=== PATIENT | male | born 1970 | race African-American/Black ===

== ENCOUNTER 2021-08-15 03:22 | Emergency (ER) | payer SELFPAY ==
[2021-08-15] MEDS ORDERED: NA CHLORIDE 0.9% 1,000 ML ONE (04:25)
[2021-08-15] MEDS ORDERED: ONDANSETRON 4 MG/2 ML VIAL ONE (04:25)
[2021-08-15] MEDS ORDERED: MORPHINE 4 MG/ML SYR ONE ×2 (04:25→06:16)
[2021-08-15 04:54] LABS: Absolute Lymphocytes (CBC) 2.8 K/uL (0.7-4.9); MPV 7.6 fL (7.6-11.3); RBC Red Blood Cell Count 4.56 M/uL (4.33-5.43)
[2021-08-15 05:06] LABS: Albumin 3.6 g/dL (3.4-5.0); Bilirubin Direct 0.1 mg/dL (0-0.2); Bilirubin Total 0.5 mg/dL (0.2-1.0); Potassium 3.9 mmol/L (3.5-5.1); Protein, Total 7.8 g/dL (6.4-8.2)
[2021-08-15 05:13] LABS: Urine Blood Trace-intact (Negative); Urine Glucose Negative (Negative); Urine Protein Negative (Negative); Urine pH 6.5 (5.0-7.0)
[2021-08-15 05:31] LABS: Barbiturates NEGATIVE (NEGATIVE); Benzodiazepines NEGATIVE (NEGATIVE); Cocaine NEGATIVE (NEGATIVE); METHAMPHETAM NEGATIVE (NEGATIVE); Methadone NEGATIVE (NEGATIVE); Opiates NEGATIVE (NEGATIVE); Phencyclidine NEGATIVE (NEGATIVE); THC Cannibis POSITIVE (NEGATIVE)
[2021-08-15] MEDS ORDERED: PROMETHAZINE INJ 25 MG/ML AMP ONE (06:15)
--- NOTE | 2021-08-15 06:53 | EDPHYS ---
Physician Documentation [facility] Name: Ab Serrano Jr Age: 51 yrs Sex: Male : 1970 Arrival Date: 08/15/2021 Time: 03:25 Bed 8 Private MD: ED Physician Rajat Scott HPI: 08/15 04:59 This 51 yrs old Black Male presents to ER via Ambulatory with complaints of Possible mh7 Kidney Stone. 04:59 The patient presents with abdominal pain in the lower abdomen. Onset: The mh7 symptoms/episode began/occurred 2 day(s) ago. The symptoms do not radiate. Associated signs and symptoms: Pertinent positives: dysuria, nausea, Pertinent negatives: anorexia, blood in stools, chest pain, constipation, diarrhea, fever, headache, hematuria, palpitations, shortness of breath, testicular pain, vomiting, vomiting blood. The symptoms are described as intermittent, vague, waxing/waning. Modifying factors: The symptoms are alleviated by nothing, the symptoms are aggravated by nothing. Severity of pain: At its worst the pain was moderate 2 day(s) ago, in the emergency department the pain has improved moderately. Historical: - Allergies: 03:38 No Known Allergies; as6 - Home Meds: 03:38 None [Active]; as6 - PMHx: 03:38 None; as6 - PSHx: 03:38 arm; as6 - Immunization history:: Client reports receiving the 2nd dose of the Covid vaccine, [employer] . - Social history:: Smoking status: Patient denies any tobacco usage or history of. ROS: 04:59 Constitutional: Negative for fever, chills, and weight loss, Eyes: Negative for injury, mh7 pain, redness, and discharge, ENT: Negative for injury, pain, and discharge, Neck: Negative for injury, pain, and swelling, Cardiovascular: Negative for chest pain, palpitations, and edema, Respiratory: Negative for shortness of breath, cough, wheezing, and pleuritic chest pain, Back: Negative for injury and pain, MS/Extremity: Negative for injury and deformity, Skin: Negative for injury, rash, and discoloration, Neuro: Negative for headache, weakness, numbness, tingling, and seizure. Exam: 04:59 Constitutional: This is a well developed, well nourished patient who is awake, alert, mh7 and in no acute distress. Head/Face: Normocephalic, atraumatic. Eyes: Pupils equal round and reactive to light, extra-ocular motions intact. Lids and lashes normal. Conjunctiva and sclera are non-icteric and not injected. Cornea within normal limits. Periorbital areas with no swelling, redness, or edema. Neck: Trachea midline, no thyromegaly or masses palpated, and no cervical lymphadenopathy. Supple, full range of motion without nuchal rigidity, or vertebral point tenderness. No Meningismus. Chest/axilla: Normal chest wall appearance and motion. Nontender with no deformity. No lesions are appreciated. Cardiovascular: Regular rate and rhythm with a normal S1 and S2. No gallops, murmurs, or rubs. Normal PMI, no JVD. No pulse deficits. Respiratory: Lungs have equal breath sounds bilaterally, clear to auscultation and percussion. No rales, rhonchi or wheezes noted. No increased work of breathing, no retractions or nasal flaring. 04:59 Back: No spinal tenderness. No costovertebral tenderness. Full range of motion. Skin: Warm, dry with normal turgor. Normal color with no rashes, no lesions, and no evidence of cellulitis. MS/ Extremity: Pulses equal, no cyanosis. Neurovascular intact. Full, normal range of motion. Neuro: Awake and alert, GCS 15, oriented to person, place, time, and situation. Cranial nerves II-XII grossly intact. Motor strength 5/5 in all extremities. Sensory grossly intact. Cerebellar exam normal. Normal gait. Psych: Awake, alert, with orientation to person, place and time. Behavior, mood, and affect are within normal limits. 04:59 Abdomen/GI: Inspection: abdomen appears normal, Bowel sounds: normal, in all quadrants, Palpation: moderate abdominal tenderness, in the suprapubic area, right lower quadrant and left lower quadrant, mass, is not appreciated, rebound tenderness, is not appreciated, voluntary guarding, is not appreciated, involuntary guarding, is not appreciated, no appreciated organomegaly, Rectal exam: the exam is deferred, because of patient request, Indicators: McBurney's point is not tender, Bacon's sign is negative, Rovsing's sign is negative, Obturator sign is negative, Psoas sign is negative, Liver: no appreciated palpable abnormalities, Hernia: not appreciated. 04:59 ECG was reviewed by the Attending Physician. [facility] Vital Signs: 03:36 BP 142 / 105; Pulse 72; Resp 18 S; Temp 98.1(TE); Pulse Ox 99% on R/A; Weight 77.11 kg as6 (R); Height 5 ft. 7 in. (170.18 cm) (R); Pain 7/10; 06:51 BP 136 / 98; Pulse 65; Resp 18; Pulse Ox 100% on R/A; sm5 03:36 Body Mass Index 26.63 (77.11 kg, 170.18 cm) as6 MDM: 06:49 Differential diagnosis: bowel obstruction, diverticulitis, gastroesophageal reflux mh7 disease, non-specific abd pain, Ureterolithiasis, urinary tract infection. Data reviewed: vital signs, nurses notes, lab test result(s), CBC, electrolytes, urinalysis, EKG, radiologic studies, CT scan. Data interpreted: Pulse oximetry: on room air is 99 %. Interpretation: normal. Counseling: I had a detailed discussion with the patient and/or guardian regarding: the historical points, exam findings, and any diagnostic results supporting the discharge/admit diagnosis, the presence of at least one elevated blood pressure reading (>120/80) during this emergency department visit, lab results, radiology results, the need for outpatient follow up, a urologist, to return to the emergency department if symptoms worsen or persist or if there are any questions or concerns that arise at home. Response to treatment: the patient's symptoms have resolved after treatment, the patient's blood pressure is in an acceptable range, mental status has returned to baseline, the patient no longer shows bradycardia, the patient is not short of breath, the patient is not tachycardic, the patient's pain is gone, the patient's temperature has normalized, the patient is now symptom free, patient is well hydrated. 06:52 Patient medically screened. [facility] 08/15 04:17 Order name: Basic Metabolic Panel [facility] 08/15 04:17 Order name: CBC with Diff; Complete Time: 05:36 [facility] 08/15 04:17 Order name: Hepatic Function; Complete Time: 05:36 [facility] 08/15 04:17 Order name: Lipase; Complete Time: 05:36 [facility] 08/15 04:17 Order name: Basic Metabolic Panel; Complete Time: 05:36 [facility] 08/15 04:18 Order name: UDS; Complete Time: 05:36 [facility] 08/15 04:17 Order name: EKG; Complete Time: 04:18 [facility] 08/15 04:19 Order name: CT Abd/Pelvis - IV Contrast Only [facility] 08/15 05:12 Order name: Urine Dipstick-Ancillary; Complete Time: 05:36 [facility] 08/15 04:17 Order name: IV Saline Lock; Complete Time: 04:19 [facility] 08/15 04:17 Order name: Labs collected and sent; Complete Time: 04:19 [facility] 08/15 04:17 Order name: Urine Dipstick-Ancillary (obtain specimen); Complete Time: 05:14 [facility] 08/15 04:17 Order name: EKG - Nurse/Tech; Complete Time: 04:57 7 EC:59 Rate is 66 beats/min. Rhythm is regular, Normal Sinus Rhythm with No ectopy. QRS [place] [facility] is Normal. VT interval is normal. QRS interval is normal. QT interval is normal. No Q waves. T waves are Normal. No ST changes noted. Clinical impression: Normal ECG and No evidence of ischemia. Administered Medications: 04:30 Drug: Zofran (Ondansetron) 4 mg Route: IVP; Site: right antecubital; ke1 05:00 Follow up: Response: Nausea is decreased ke1 04:30 Drug: NS 0.9% 1000 ml Route: IV; Rate: 1000 ml; Site: right antecubital; ke1 04:31 Drug: morphine 4 mg Route: IVP; Site: right antecubital; ke1 05:00 Follow up: Response: Pain is decreased ke1 06:24 Drug: morphine 4 mg Route: IVP; Site: right antecubital; ke1 06:24 Drug: Phenergan (promethazine) 12.5 mg Route: IVP; Site: right antecubital; ke1 Disposition Summary: 08/15/21 06:52 Discharge Ordered Location: Home [facility] Problem: an acute exacerbation [facility] Symptoms: have improved [facility] Condition: Stable [facility] Diagnosis - Lower abdominal pain, unspecified [facility] - Calculus of kidney - Bilateral [facility] Followup: [facility] - With: Private Physician - When: 2 - 3 days - Reason: Worsening of condition, Recheck today's complaints, Continuance of care, Re-evaluation by your physician Discharge Instructions: - Discharge Summary Sheet [facility] - Kidney Stones [facility] - Abdominal Pain, Adult, [id number] [facility] Forms: - Medication Reconciliation Form [facility] - Thank You Letter [facility] - Antibiotic Education [facility] - Prescription Opioid Use [facility] Prescriptions: - ketorolac 10 mg Oral tablet - take 1 tablet by ORAL route every 6 hours As needed not to exceed 40 mg in [facility] 24hrs; 15 tablet; Refills: 0, Product Selection Permitted - ondansetron 4 mg Oral tablet,disintegrating - place 1 tablet by TRANSLINGUAL route every 8 hours As needed; 10 tablet; [facility] Refills: 0, Product Selection Permitted Signatures: Dispatcher [employer] Rajat Roper MD MD 7 Paco Emery RN RN as6 Darrion Niño RN RN ke1
--- NOTE | 2021-08-15 06:53 | ER ---
Nurse's Notes [facility] Name: Ab Serrano Jr Age: 51 yrs Sex: Male : 1970 Arrival Date: 08/15/2021 Time: 03:25 Bed 8 Private MD: Diagnosis: Lower abdominal pain, unspecified;Calculus of kidney-Bilateral Presentation: 08/15 03:36 Chief complaint: Patient states: "I've had like 3 kidney stones and this feels like a as6 stone. It's killing me" pt c/p left sided abdominal pain. Coronavirus screen: At this time, the client does not indicate any symptoms associated with coronavirus-19. Ebola Screen: No symptoms or risks identified at this time. Initial Sepsis Screen: Does the patient meet any 2 criteria? No. Patient's initial sepsis screen is negative. Does the patient have a suspected source of infection? No. Patient's initial sepsis screen is negative. Risk Assessment: Do you want to hurt yourself or someone else? Patient reports no desire to harm self or others. Onset of symptoms was August 13, 2021. 03:36 Method Of Arrival: Ambulatory as6 03:36 Acuity: YARITZA 3 as6 Triage Assessment: 03:39 General: Appears uncomfortable, Behavior is calm, cooperative. Pain: Complains of pain as6 in abdomen. GI: Reports lower abdominal pain, upper abdominal pain. : Reports pain. Historical: - Allergies: 03:38 No Known Allergies; as6 - Home Meds: 03:38 None [Active]; as6 - PMHx: 03:38 None; as6 - PSHx: 03:38 arm; as6 - Immunization history:: Client reports receiving the 2nd dose of the Covid vaccine, [facility] . - Social history:: Smoking status: Patient denies any tobacco usage or history of. Screenin:30 Abuse screen: Denies threats or abuse. Nutritional screening: No deficits noted. ke1 Tuberculosis screening: No symptoms or risk factors identified. Fall Risk None identified. Assessment: 04:00 GI: Bowel sounds present X 4 quads. Abd is soft Abdomen is tender to palpation in left ke1 side back. 04:01 General: Appears in no apparent distress. Behavior is cooperative, appropriate for age. sm5 Pain: Complains of pain in abdomen. Neuro: No deficits noted. Level of Consciousness is awake, alert, obeys commands, Oriented to person, place, time, situation. Cardiovascular: No deficits noted. Capillary refill < 3 seconds Patient's skin is warm and dry. Respiratory: No deficits noted. Airway is patent Trachea midline Respiratory effort is even, unlabored. : Reports pain with urination. 05:04 Reassessment: No changes from previously documented assessment. Patient and/or family 5 updated on plan of care and expected duration. Pain level reassessed. 06:02 Reassessment: No changes from previously documented assessment. 5 Vital Signs: 03:36 BP 142 / 105; Pulse 72; Resp 18 S; Temp 98.1(TE); Pulse Ox 99% on R/A; Weight 77.11 kg as6 (R); Height 5 ft. 7 in. (170.18 cm) (R); Pain 7/10; 06:51 BP 136 / 98; Pulse 65; Resp 18; Pulse Ox 100% on R/A; sm5 03:36 Body Mass Index 26.63 (77.11 kg, 170.18 cm) as6 ED Course: 03:25 Patient arrived in ED. es 03:38 Triage completed. as6 03:40 Arm band placed on. as6 03:45 Rajat Scott MD is Attending Physician. mh7 03:55 [place], AMY is Primary Nurse. sm5 04:01 Inserted saline lock: 20 gauge in right antecubital area, using aseptic technique. 5 Blood collected. 04:19 Basic Metabolic Panel Sent. sm5 04:19 CBC with Diff Sent. sm5 04:19 Hepatic Function Sent. sm5 04:19 Lipase Sent. sm5 05:14 UDS Sent. sm5 05:38 CT Abd/Pelvis - IV Contrast Only In Process Unspecified. EDMS 06:53 Patient has correct armband on for positive identification. Bed in low position. Call 5 light in reach. Side rails up X2. Pulse ox on. NIBP on. 06:53 No provider procedures requiring assistance completed. sm5 07:03 IV discontinued, intact, bleeding controlled, No redness/swelling at site. Pressure 5 dressing applied. Administered Medications: 04:30 Drug: Zofran (Ondansetron) 4 mg Route: IVP; Site: right antecubital; ke1 05:00 Follow up: Response: Nausea is decreased ke1 04:30 Drug: NS 0.9% 1000 ml Route: IV; Rate: 1000 ml; Site: right antecubital; ke1 04:31 Drug: morphine 4 mg Route: IVP; Site: right antecubital; ke1 05:00 Follow up: Response: Pain is decreased ke1 06:24 Drug: morphine 4 mg Route: IVP; Site: right antecubital; ke1 06:24 Drug: Phenergan (promethazine) 12.5 mg Route: IVP; Site: right antecubital; ke1 Outcome: 06:52 Discharge ordered by . Johnnie 07:03 Discharged to home ambulatory. [facility] 07:03 Condition: stable 07:03 Discharge instructions given to patient, Instructed on discharge instructions, follow up and referral plans. medication usage, Demonstrated understanding of instructions, follow-up care, medications, Prescriptions given X 2. 07:03 Patient left the ED. 5 Signatures: Dispatcher [employer] EDJossie Pavon Maurice, MD MD 7 Paco Emery RN RN as6 [place] RN RN 5 Darrion Niño RN RN ke1 Corrections: (The following items were deleted from the chart) 06:23 06:20 GI: Bowel sounds present X 4 quads. ke1 ke1
[2021-08-15 07:24] VITALS: TEMP 98.1
[2021-08-15 07:25] VITALS: BP 136/98; O2SAT 100
--- NOTE | 2021-08-15 10:14 | RAD REPORT ---
EXAM DESCRIPTION: CT - Abdomen Pelvis W Contrast - 08/15/2021 6:55 am CLINICAL HISTORY: ABD PAIN COMPARISON: None Available. TECHNIQUE: CT of the abdomen and pelvis performed following IV administration of iodinated contras t. This exam was performed according to our departmental dose-optimization program, which includes au tomated exposure control, adjustment of the mA and/or kV according to patient size and/or use of iter ative reconstruction technique. FINDINGS: Lung Bases: Minimal bilateral dependent atelectasis. Bones: No destructive bone lesions identified. Abdomen: Liver: The liver has normal size and density. No intrahepatic biliary dilatation. Gallbladder: No calcified gallstones. Spleen, Pancreas, and Adrenal Glands: The spleen, pancreas, and adrenal glands are unremarkable. Kidneys: No hydronephrosis or obstructing calculus. Bilateral nonobstructing nephrolithiasis. Vasculature: Aortoiliac atherosclerosis. IVC is unremarkable. The portal vein is patent. The proxim al visceral and renal arteries are patent. Stomach: The stomach and duodenum have normal course. Other: No free intraperitoneal air. No free fluid or lymphadenopathy. Pelvis: Bladder: Urinary bladder is unremarkable. Bowel: No dilated loops of large or small bowel. Appendix: Normal appendix. Pelvis: Prostate is not enlarged. IMPRESSION: 1. No acute inflammatory or obstructive process identified. 2. Bilateral nonobstructing nephrolithiasis. Electronically signed by: Jose Antonio Moy 08/15/2021 6:31 AM CDT Due to temporary technical issues with the PACS/Fluency reporting system, reports are being signed by the in house radiologists without review as a courtesy to insure prompt reporting. The interpreting radiologist is fully responsible for the content of the report.
--- NOTE | 2021-08-16 07:25 | EKG ---
Test Date: 2021-08-15 Test Time: 04:42:19 [place] Hand: RONEY MEASUREMENT RESULTS: Intervals: Rate: 66 WY: 146 QRSD: 82 QT: 418 QTc: 438 [place]: P: 55 WY: 146 QRS: 26 T: 8 INTERPRETIVE STATEMENTS: Normal sinus rhythm Normal ECG No previous ECG available for comparison Electronically Signed On 08-16-21 07:22:15 CDT by Jorge Mckoy
== END 2021-08-15 07:03 | disposition home or self-care (01) ==
LOC: ER 03:22
DX: N20.0 Calculus of kidney (principal)
CPT/HCPCS: 36415; 74177; 80048; 80076; 80307; 81003; 83690; 85025; 93005; 96374; 96375; 99284; J2405; J2550; J7030; Q9967